=== PATIENT | male | born 1940 | race Caucasian/White ===

== ENCOUNTER 2022-06-29 12:12 | Outpatient (REF) | payer MEDICARE, SELFPAY ==
[2022-06-29 15:15] LABS: Anion Gap 5.1 mmol/L (3-11); BUN 29 mg/dL (7-18); CO2 31.9 mmol/L (21.0-32.0); CREATININE 1.1 mg/dL (0.70-1.30); Calcium 8.9 mg/dL (8.5-10.1); Chloride 102 mmol/L (98-107); Estimated GFR 66.61 (mL/min/1.73m2); Glucose 103 mg/dL (74-106); Sodium 139 mmol/L (136-145)
== END 2022-06-29 12:13 | disposition home or self-care (01) ==
LOC: LBN 12:12
DX: R94.4 Abnormal results of kidney function studies (principal)
CPT/HCPCS: 80048